=== PATIENT | male | born 1950 | race Caucasian/White ===

== ENCOUNTER → 2016-05-13 | Outpatient (CLI) | payer OTHER | LOC: CT 13:30 | DX: I67.2 Cerebral atherosclerosis (principal); I65.23 Occlusion and stenosis of bilateral carotid arteries; I71.2 Thoracic aortic aneurysm, without rupture; M47.812 Spondylosis without myelopathy or radiculopathy, cervical region; M48.02 Spinal stenosis, cervical region; J43.9 Emphysema, unspecified; R91.1 Solitary pulmonary nodule | CPT/HCPCS: 70496; 70498; J7050; Q9963 ==

== ENCOUNTER → 2020-03-06 | Day surgery (SDC) | payer OTHER ==
[~2020-03-06] MED LIST: ALBUTEROL2.5 MG/3 M INH; ANORO ELLIPTA1 EACH INH; ATORVASTATIN CA20 MG PO; AVODART 0.5 MG0.5 MG PO; BACLOFEN20 MG PO; BACTROBAN OINT22 GM EXT; COREG 3.125M3.125 MG PO; COREG6.25 MG PO; CYMBALTA60 MG PO; DAILY VITE1 EACH PO; DIGOX125 MCG PO; ELIQUIS 5 MG TAB5 MG PO; FIBER THERAPY500 MG PO; FIBER625 MG PO; FLOMAX 0.4 MG0.4 MG PO; FLOMAX0.4 MG PO; FLONASE 0.05% N16 GM; HYDROCHLOROTH12.5 MG PO; HYDROCODON-ACE1 EAC2 PO; HYDROCODONE-AC1 EACH PO; KEFLEX CAP 500500 MG PO; LEVAQUIN500 MG PO; LIPITOR TAB 1010 MG PO; LIPITOR TAB 2020 MG PO; LYRICA150 MG PO; MICROZIDE12.5 MG PO; MIRAPEX0.25 MG PO; MULTAQ 400 MG400 MG PO; NITROSTAT0.4 MG SL; OMNICEF 300 MG300 MG PO; ONCE DAILY1 EACH PO; PREGABALIN150 MG PO; PRINIVIL10 MG PO; PULMICORT0.5 MG/2 M INH; SYMBICORT 160-1 INHA INH; TAMIFLU 75 MG C75 MG PO; TYLENOL W/CODEIN1 E1 PO; ULTRAM50 MG PO; VENTOLIN HFA 66.7 GM INH
== END | disposition home or self-care (01) ==
LOC: OR 10:42
PROVIDERS: Urology
PROC: 0TJB8ZZ Inspection of Bladder, Via Natural or Artificial Opening Endoscopic (ICD-10-PCS; principal; 2020-03-06 12:30)
DX: N40.1 Benign prostatic hyperplasia with lower urinary tract symptoms (principal); R33.8 Other retention of urine; N32.89 Other specified disorders of bladder; R31.9 Hematuria, unspecified; N41.9 Inflammatory disease of prostate, unspecified; J44.9 Chronic obstructive pulmonary disease, unspecified; F41.8 Other specified anxiety disorders; I11.0 Hypertensive heart disease with heart failure; I50.9 Heart failure, unspecified; I25.2 Old myocardial infarction; G47.33 Obstructive sleep apnea (adult) (pediatric); I48.0 Paroxysmal atrial fibrillation; G47.30 Sleep apnea, unspecified; Z79.899 Other long term (current) drug therapy; Z20.822 Contact with and (suspected) exposure to COVID-19
CPT/HCPCS: J7040

== ENCOUNTER → 2020-08-01 | Outpatient (CLI) | payer OTHER | LOC: RAD 12:35 | DX: J44.9 Chronic obstructive pulmonary disease, unspecified (principal) | CPT/HCPCS: 71046 ==

== ENCOUNTER → 2020-08-18 | Outpatient (CLI) | payer OTHER | LOC: KOH-I 14:00 | DX: F17.210 Nicotine dependence, cigarettes, uncomplicated (principal); J43.9 Emphysema, unspecified; R91.8 Other nonspecific abnormal finding of lung field; K80.20 Calculus of gallbladder without cholecystitis without obstruction | CPT/HCPCS: 71271 ==

== ENCOUNTER → 2020-09-02 | Outpatient (CLI) | payer OTHER ==
[~2020-09-02] MED LIST changes: +CYCLOBENZAPRINE10 MG PO; +CYCLOBENZAPRINE5 MG PO; +MEDROL DOSEPAK 24 MG PO; +Voltaren Gel 1 % TOP
== END ==
LOC: RT 11:58
DX: R09.02 Hypoxemia (principal)
CPT/HCPCS: 36600; 82803

== ENCOUNTER 2020-09-28 17:16 | Emergency (ER) | payer OTHER ==
[~2020-09-28 17:16] MED LIST changes: -CYCLOBENZAPRINE10 MG PO; -CYCLOBENZAPRINE5 MG PO; -MEDROL DOSEPAK 24 MG PO; -Voltaren Gel 1 % TOP
[2020-09-28 19:34] LABS: HEMOGLOBIN 14.8 gm/dl (14.0-17.5); RED BLOOD COUNT 4.84 M/UL (4.20-5.50); WHITE BLOOD COUNT 11.9 K/UL (4.5-11.0)
[2020-09-28 20:00] LABS: BUN/CREATININE RATIO 16 (0-10)
== END 2020-09-28 19:55 | disposition home or self-care (01) ==
LOC: ER1 17:16
PROVIDERS: Physician Assistant
DX: R06.00 Dyspnea, unspecified (principal); J44.9 Chronic obstructive pulmonary disease, unspecified; E78.5 Hyperlipidemia, unspecified; I25.2 Old myocardial infarction; I51.9 Heart disease, unspecified; Z95.0 Presence of cardiac pacemaker
CPT/HCPCS: 80053; 82550; 82553; 83874; 83880; 84484; 85025; 99284

== ENCOUNTER 2020-10-03 06:25 | Emergency (ER) | payer OTHER ==
[2020-10-03 07:27] LABS: HEMOGLOBIN 14.9 gm/dl (14.0-17.5); RED BLOOD COUNT 4.78 M/UL (4.20-5.50); WHITE BLOOD COUNT 7.8 K/UL (4.5-11.0)
[2020-10-03 07:47] LABS: BUN/CREATININE RATIO 18 (0-10)
[2020-10-03] MEDS ORDERED: MEDROL DOSEPAK 24 MG PO (10:03)
[2020-10-03] MEDS ORDERED: Voltaren Gel 1 % TOP (10:03)
== END 2020-10-03 10:36 | disposition home or self-care (01) ==
LOC: ER1 06:25
PROVIDERS: Physician Assistant Medical
DX: M54.2 Cervicalgia (principal); G89.29 Other chronic pain; J44.9 Chronic obstructive pulmonary disease, unspecified; F17.210 Nicotine dependence, cigarettes, uncomplicated; Z95.0 Presence of cardiac pacemaker
CPT/HCPCS: 71045; 72125; 80053; 82550; 82553; 83874; 84484; 85025; 93005; 96374; 99284; J2930

== ENCOUNTER → 2020-10-23 | Outpatient (CLI) | payer OTHER ==
[~2020-10-23] MED LIST changes: +MEDROL DOSEPAK 24 MG PO; +Voltaren Gel 1 % TOP
== END ==
LOC: KOH-I 11:00
DX: R41.89 Other symptoms and signs involving cognitive functions and awareness (principal); G31.9 Degenerative disease of nervous system, unspecified
CPT/HCPCS: 70450

== ENCOUNTER 2020-11-04 06:25 | Emergency (ER) | payer OTHER ==
[2020-11-04 07:34] LABS: HEMOGLOBIN 14.5 gm/dl (14.0-17.5); RED BLOOD COUNT 4.7 M/UL (4.20-5.50); WHITE BLOOD COUNT 9.6 K/UL (4.5-11.0)
[2020-11-04 08:00] LABS: BUN/CREATININE RATIO 15 (0-10)
[2020-11-04] MEDS ORDERED: CYCLOBENZAPRINE10 MG PO (09:13)
== END 2020-11-04 10:55 | disposition home or self-care (01) ==
LOC: ER1 06:25
PROVIDERS: Physician Assistant
DX: S16.1XXA Strain of muscle, fascia and tendon at neck level, initial encounter (principal); Z79.01 Long term (current) use of anticoagulants; I25.10 Atherosclerotic heart disease of native coronary artery without angina pectoris; X58.XXXA Exposure to other specified factors, initial encounter
CPT/HCPCS: 80053; 82550; 82553; 83874; 84484; 85025; 93005; 96372; 99283; J1885; J2360

== ENCOUNTER 2020-11-06 17:56 | Emergency (ER) | payer OTHER ==
[~2020-11-06 17:56] MED LIST changes: +CYCLOBENZAPRINE10 MG PO
== END 2020-11-06 21:02 | disposition home or self-care (01) ==
LOC: ER1 17:56
DX: M54.6 Pain in thoracic spine (principal); M25.512 Pain in left shoulder; J44.9 Chronic obstructive pulmonary disease, unspecified; F17.210 Nicotine dependence, cigarettes, uncomplicated
CPT/HCPCS: 71046; 94664; 94760; 99283

== ENCOUNTER 2020-11-12 07:30 | Emergency (ER) | payer OTHER ==
[~2020-11-12] VITALS: Ht 175.3 cm; Wt 81.6 kg
[2020-11-12 09:27] LABS: HEMOGLOBIN 15.5 gm/dl (14.0-17.5); RED BLOOD COUNT 4.76 M/UL (4.20-5.50); WHITE BLOOD COUNT 6.2 K/UL (4.5-11.0)
[2020-11-12 10:01] LABS: BUN/CREATININE RATIO 21 (0-10)
[2020-11-12] MEDS ORDERED: CYCLOBENZAPRINE5 MG PO (13:16)
== END 2020-11-12 13:30 | disposition home or self-care (01) ==
LOC: ER1 07:30
PROVIDERS: Student in an Organized Health Care Education/Training Program
DX: R06.02 Shortness of breath (principal); M54.2 Cervicalgia; F17.200 Nicotine dependence, unspecified, uncomplicated
CPT/HCPCS: 71045; 71250; 80053; 80162; 82550; 82553; 83874; 83880; 84484; 85025; 93005; 96374; 96375; 96376; 99285; J2270; J2405

== ENCOUNTER → 2020-11-28 | Outpatient (CLI) | payer OTHER ==
[~2020-11-28] MED LIST changes: +CYCLOBENZAPRINE5 MG PO
== END ==
LOC: RAD 16:03
DX: M25.512 Pain in left shoulder (principal); M54.12 Radiculopathy, cervical region; R41.3 Other amnesia
CPT/HCPCS: 73030

== ENCOUNTER → 2020-12-11 | Outpatient (CLI) | payer OTHER | LOC: KOH-I 08:00 | DX: M50.30 Other cervical disc degeneration, unspecified cervical region (principal); M48.02 Spinal stenosis, cervical region; M47.812 Spondylosis without myelopathy or radiculopathy, cervical region | CPT/HCPCS: 72125 ==

== ENCOUNTER → 2021-02-04 | Outpatient (CLI) | payer OTHER | LOC: KOH-I 08:52 | DX: I71.4 Abdominal aortic aneurysm, without rupture (principal); I71.2 Thoracic aortic aneurysm, without rupture | CPT/HCPCS: 76706-PO ==

== ENCOUNTER → 2021-03-13 | Outpatient (CLI) | payer OTHER | LOC: HEART 5 10:47 | DX: J44.9 Chronic obstructive pulmonary disease, unspecified (principal) | CPT/HCPCS: 94060; 94729 ==

== ENCOUNTER 2021-03-24 12:22 | Emergency (ER) | payer OTHER ==
[2021-03-24 15:18] LABS: HEMOGLOBIN 16.2 gm/dl (14.0-17.5); RED BLOOD COUNT 5.22 M/UL (4.20-5.50); WHITE BLOOD COUNT 8.4 K/UL (4.5-11.0)
[2021-03-24 15:48] LABS: BUN/CREATININE RATIO 16 (0-10)
[2021-03-24] MEDS ORDERED: PREDNISONE 20 M20 MG PO (16:54)
== END 2021-03-24 16:58 | disposition home or self-care (01) ==
LOC: ER1 12:22
PROVIDERS: Emergency Medicine
DX: J44.1 Chronic obstructive pulmonary disease with (acute) exacerbation (principal); I25.10 Atherosclerotic heart disease of native coronary artery without angina pectoris; F17.200 Nicotine dependence, unspecified, uncomplicated; Z79.01 Long term (current) use of anticoagulants; Z95.0 Presence of cardiac pacemaker
CPT/HCPCS: 71045; 80053; 82550; 82553; 83605; 83880; 84484; 85025; 87040; 93005; 96374; 99285; J2930

== ENCOUNTER → 2021-05-19 | Outpatient (CLI) | payer OTHER ==
[~2021-05-19] MED LIST changes: +PREDNISONE 20 M20 MG PO
== END ==
LOC: HEART 5 07:34
DX: I20.8 Other forms of angina pectoris (principal); R06.02 Shortness of breath; I08.1 Rheumatic disorders of both mitral and tricuspid valves; Z95.0 Presence of cardiac pacemaker
CPT/HCPCS: 78452; 93306; A9502; J2785

== ENCOUNTER 2021-10-16 14:28 | Emergency (ER) | payer OTHER ==
[2021-10-16 15:04] LABS: HEMOGLOBIN 15.3 gm/dl (14.0-17.5); RED BLOOD COUNT 4.89 M/UL (4.20-5.50); WHITE BLOOD COUNT 11.6 K/UL (4.5-11.0)
[2021-10-16 15:26] LABS: BUN/CREATININE RATIO 20 (0-10)
== END 2021-10-16 19:25 | disposition home or self-care (01) ==
LOC: ER1 14:28
PROVIDERS: Nurse Practitioner
DX: U07.1 COVID-19 (principal); I11.9 Hypertensive heart disease without heart failure; I25.2 Old myocardial infarction; F17.210 Nicotine dependence, cigarettes, uncomplicated; J44.9 Chronic obstructive pulmonary disease, unspecified; Z95.0 Presence of cardiac pacemaker; Z79.01 Long term (current) use of anticoagulants
CPT/HCPCS: 36600; 71045; 80053; 81001; 82550; 82553; 82803; 83880; 84484; 85025; 85610; 85652; 85730; 86140; 93005; 96374; 99285; J1885; Q9967